=== PATIENT | female | born 1985 | race Caucasian/White ===

== ENCOUNTER → 2016-08-26 | Outpatient (CLI) | payer OTHER ==
[~2016-08-26] MED LIST: HYDROCODONE-APA1 TA1 PO; PRENATAL PLUS1 TA1 PO; SYNTHROID 0.00.05 MG PO
== END ==
LOC: LAB 09:54
PROVIDERS: Obstetrics & Gynecology
DX: Z36 Encounter for antenatal screening of mother (principal)

== ENCOUNTER 2017-03-28 18:13 | Emergency (ER) | payer OTHER ==
[~2017-03-28] VITALS: Ht 160 cm; Wt 72.6 kg
--- NOTE | 2017-03-28 18:34 | Urgent Treatment Center Report ---
History of Present Issue Date/Time Seen by Provider 03/28/171828 Visit Reason Pt arrived:Walked Presenting Problem:SORE THROAT FOR 3 DAYS Location if Accident: Onset of symptoms date/time:03/26/1702/03/1200 or onset unknown for: Have you (or family members/close friends) recently traveled outside the [place]? N If Yes, where/when: Have you had exposure to infectious disease within the past month? TB? Other? Specify: Patient state that she has had sore throat now for three days and she noticed white spots all over her tonsils and thought she seen a black spot on the top of her left tonsil and was worried. States that she has been taking over the counter Ibuprofen and it has been working some for the discomfort but when it wears off her throat is hurting again States that she has felt tired and wore out ALLERGIES Coded Allergies: amoxicillin (I-RASH 01/26/17) Home Medications Active Scripts HYDROCODONE 5MG/APAP 325MG (Hydrocodon-Acetaminophen 5-325) 1 TAB PO Q6HP PRN MODERATE TO SEVERE PAIN #20 TAB Prov: 01/29/17 Reported Medications MULTIVIT-MIN W/FE-FA ( Multivitamin Tablet) 1 TAB PO DAILY Levothyroxine Sodium (Synthroid 0.05MG) 0.05 MG PO DAILY History Medical History General Angina: No RI: No Hypertension? No Hyperlipidemia? No CHF? No COPD? No Asthma? No CVA? No Seizures? No Diabetes? No GB Disease: No MRSA? No TB? No Cancer? No Immunization HX DT/Tetanus 1-4 Years Ago Flu 2014-FSN Pneumonia Refuses Surgical Hx Previous Surgery?N Social History Smoking Hx Smoker: Former Smoker Tobacco: No Type Cigarettes Packs/day < 1 Pack Are you/the child exposed to second-hand smoke: No Alcohol Alcohol: No Review of Systems All Other Systems Reviewed and Negative ENT throat pain, throat swelling. Physical Exam Vital Signs Vital Signs Date Time Temp Pulse Resp B/P Pulse O2 O2 Flow FiO2 Ox Delivery Rate 03/28 1819 98.8 78 20 119/77 100 General Appearance normal appearance, WD/WN, no apparent distress Ear, Nose, Throat tonsillar exudate, tonsillar swelling, Tonsils red swollen with tonsil stones noted on both right and left tonsils Respiratory Status Yes: trachea midline, chest symmetrical, non tender chest. No: respiratory distress. 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 No Results/Orders Laboratory Tests 03/28/17 1850: Monoscreen NEGATIVE 03/28/17 182: Group A Strep Screen NOT DETECTED Orders Procedure Date/time Status MONO SCREEN 03/28 1827 Complete [facility] STREP SCREEN 03/28 1821 Complete Progress UT Progress Notes Comment Patient state that she is allergic to amoxicillin but that she has taken Cefdinir before without difficulty patient educated on the risk of cross sensitivitiy Departure Departure Time of Disposition 1908 Disposition DC Home or Self Care(routine) Clinical Impression Primary Impression: Upper respiratory infection Qualifiers: URI type: acute tonsillitis Pharyngitis/tonsillitis etiology: unspecified etiology Qualified Code: J03.90 - Acute tonsillitis, unspecified Condition STABLE Referrals Damon JARAMILLO,Edson (Family) Patient Instructions Sore Throat Additional Instructions Preventing tonsil stones If you have tonsil stones, they may occur on a regular basis. Fortunately, there are steps you can take to prevent them. These steps include: practicing good oral hygiene, including cleaning the bacteria off the back of your tongue when you brush your teeth stopping smoking gargling with salt water drinking plenty of water to stay hydrated Tonsil stone removal Most tonsilloliths are harmless, but many people want to remove them because they can smell bad or cause discomfort. Treatments range from home remedies to medical procedures Gargling Gargling vigorously with salt water can ease throat discomfort and may help dislodge tonsil stones. Salt water may also help to change your mouth chemistry. It can also help get rid of the odor tonsil stones can cause. Dissolve 1/2 teaspoon salt in 8 ounces of warm water, and gargle * Monitor Temp. Tylenol and/or Ibuprofen as needed. ER if fever is no less than 101 despite alternating Tylenol and Ibuprofen * Encourage fluids, water, Gatorade, powerade, pedialyte if infant/toddler/or child * Warm salt water gargles for throat irritation *Warm fluids *Sore throat lozenges *Sleep elevated Discharge Counseling Counseled pt/family regarding diagnosis, test results, medications/RX, home care, follow up needs Prescriptions Current Visit Scripts CEFDINIR (Cefdinir) 300 MG PO BID #20 CAP at 1911
[2017-03-28] MEDS ORDERED: OMNICEF 300 MG300 MG PO (19:12)
[2017-03-28 19:15] VITALS: BP 119/77
== END 2017-03-28 19:16 | disposition home or self-care (01) ==
LOC: UTC 18:13
DX: J03.90 Acute tonsillitis, unspecified (principal); Z87.891 Personal history of nicotine dependence; Z88.1 Allergy status to other antibiotic agents

== ENCOUNTER 2017-04-01 18:26 | Observation (INO) | payer OTHER ==
[~2017-04-01] VITALS: Ht 160 cm; Wt 75.4 kg
[~2017-04-01 18:26] MED LIST changes: +OMNICEF 300 MG300 MG PO
[2017-04-01 18:45] VITALS: BP 136/7
--- NOTE | 2017-04-01 19:00 | Emergency Room Report ---
History of Present Illness Time Seen by 1827 Presenting Problem in Triage Pt arrived:Walked Presenting Problem:PT PRESENTS WITH DIFFICULTY SWALLOWING. 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 N Clinical Suspician of Infection? N Mental Status: 1 - Regular (Normal Baseline) Sepsis Risk:Low Sepsis Risk Have you (or family members/close friends) recently traveled outside the [place]? N If Yes, where/when: Have you had exposure to infectious disease within the past month? TB? Other? Specify: Comment The patient complains of a 5 day history of sore throat. She has very large tonsils making it very difficult to swallow. She is finding it difficult at this point even take Jell-O and popsicles. She has been seen at the urgent treatment center on 03/28/17. Negative strep screen and Monospot. Started on cefdinir. She did not improve. She saw her primary care physician on Thursday 2 days ago and was given a steroid shot and started on clindamycin. She has continued to worsen. She had a CT scan of the neck today which showed severely enlarged tonsils without abscess. ALLERGIES Coded Allergies: amoxicillin (I-RASH 04/01/17) Home Medications Active Scripts CEFDINIR (Cefdinir) 300 MG PO BID #20 CAP Prov: 03/28/17 HYDROCODONE 5MG/APAP 325MG (Hydrocodon-Acetaminophen 5-325) 1 TAB PO Q6HP PRN MODERATE TO SEVERE PAIN #20 TAB Prov: 01/29/17 Reported Medications MULTIVIT-MIN W/FE-FA ( Multivitamin Tablet) 1 TAB PO DAILY Levothyroxine Sodium (Synthroid 0.05MG) 0.05 MG PO DAILY History Medical History General Angina: No MD: No Hypertension? No Hyperlipidemia? No CHF? No COPD? No Asthma? No CVA? No Seizures? No Diabetes? No GB Disease: No MRSA? No TB? No Cancer? No Immunization Hx Ped.Immunizations UTD Yes DT/Tetanus 1-4 Years Ago Flu 2015-16FSN Pneumonia Refuses Surgical Hx Previous Surgery?N BUSINESS INFO CONSULTANT Hx LMP N/A Social History Smoking Hx Smoker: Never Smoker Tobacco: No Type N/A Packs/day < 1 Pack Alcohol Alcohol: No Review of Systems All Other Systems Reviewed and Negative Constitutional fever ENT throat pain. Physical Exam Vital Signs Vital Signs Date Time Temp Pulse Resp B/P Pulse O2 O2 Flow FiO2 Ox Delivery Rate 04/01 1959 98.9 68 20 120/73 97 04/01 1958 98.9 83 20 136/70 97 04/01 1936 20 04/01 1845 98.9 83 18 136/7 97 General Appearance no apparent distress Eye Exam - bilateral eye normal exam, bilateral eye PERRL, bilateral eye EOMI Ear, Nose, Throat markedly enlarged tonsils, by about 1 cm, not kissing. No asymmetric swelling or uvular deviation to suggest abscess. No stridor or drooling. Erythema and exudates present on tonsils. Neck normal inspection, non-tender, supple, full range of motion Respiratory Status Yes: trachea midline, chest symmetrical. No: respiratory distress. Lung Sounds bilateral: normal breath sounds, lungs clear. Cardiovascular normal exam, regular rate/rhythm, no peripheral edema, no gallop, no JVD, no murmur, no rub, normal peripheral pulses Peripheral Pulses Pulses normal Yes Gastrointestinal normal bowel sounds, normal exam, non tender, soft, no organomegaly Extremities normal inspection Neurologic alert, normal exam, oriented x 3 Mental status normal mood/affect Skin intact, normal color, warm/dry Lymphatic no adenopathy Medical Decision Making LABS/Meds/Orders Pt receiving controlled substance in ED? Yes Pedro Pablo was queried for this patient? No Reason not queried - emergent pt cond=no time Results/Orders Laboratory Tests 04/01/17 1855: Sodium 140, Potassium 3.7, Chloride 106, Carbon Dioxide 26, BUN 8, Creatinine 0.8, Estimated Creat Clear 111, Estimated GFR (MDRD) 85, Glucose 78, Calcium 8.9 , Total Bilirubin 0.2, AST 14 L, ALT 19, Alkaline Phosphatase 120 H, Total Protein 7.1, Albumin 3.2 L, Globulin 3.9 H, Albumin/Globulin Ratio 0.8 L, WBC 8.3, RBC 4.20, Hgb 13.2, Hct 39.1, MCV 93.0, RDW 12.2, Plt Count 306, MPV 7.9, Gran % 65.4, Gran # 5.4, Lymphocytes % 25.3, Monocytes % 7.7, Eosinophils % 1.1, Basophils % 0.4, Lymphocytes # 2.1, Monocytes # 0.6, Eosinophils # 0.1, Basophils # 0.0, PUBS MCHC 33.7, MCH 31.3 H, Monoscreen NEGATIVE Current Medication Orders Sig/Viola Start time Last Medication Dose Route Stop Time Status Admin Ceftriaxone Sodium 1 GM ONCE ONE 04/01 2015 r Sodium Chloride 50 ML IV 04/01 2044 Sodium Chloride 1,000 ML .STK-MED ONE 04/01 1942 DC IV Methylprednisolone 0 .STK-MED ONE 04/01 1929 DC Sodium Succinate .ROUTE Morphine Sulfate 0 .STK-MED ONE 04/01 1929 DC .ROUTE Ondansetron HCl 0 .STK-MED ONE 04/01 1929 DC .ROUTE Methylprednisolone 125 MG ONCE ONE 04/01 1915 DC 04/01 Sodium Succinate IV 04/01 Morphine Sulfate 4 MG ONCE ONE 04/01 1915 DC 04/01 IV 04/01 Ondansetron HCl 4 MG ONCE ONE 04/01 1915 DC 04/01 IV 04/01 1916 193 Sodium Chloride 10 ML PRN PRN 04/01 1915 AC IV 04/02 1902 Sodium Chloride 1,000 ML .Q1H1M 04/01 1915 AC 04/01 IV 04/01 Sodium Chloride 10 ML PRN PRN 04/01 1915 AC IV 04/02 1903 Sodium Chloride 1,000 ML .Q1H1M 04/01 1915 AC IV 04/01 2015 Sodium Chloride 10 ML PRN PRN 04/01 1915 AC IV 04/02 1903 Orders Procedure Date/time Status MONO SCREEN 04/01 1912 Complete IV SALINE LOCK 04/01 1904 Active CBC WITH AUTO DIFF 04/01 1904 Complete CHEM 12 PROFILE 04/01 1904 Complete Progress - 7:50 PM: I have discussed the case with Dr. Jose who agrees to admit the patient to the hospital. We discussed the patient's clinical information, including history, exam, laboratory and radiology results and ED course. Per hospital procedure, I will write temporary bridge inpatient orders on the patient. Specific orders requested by the admitting physician: IV fluids, Decadron, 1 dose of Rocephin, continue clindamycin. Departure Departure Disposition Still a Patient Clinical Impression Primary Impression: Acute tonsillitis Qualifiers: Pharyngitis/tonsillitis etiology: unspecified etiology Qualified Code: J03.90 - Acute tonsillitis, unspecified Condition STABLE Referrals Edson Jose MD (Family) ED Critical Care Critical Care No at 2002
[2017-04-01 19:09] LABS: HEMOGLOBIN 13.2 g/dL (12.2-16.2); LYMPH # 2.1 K/mm3 (0.7-4.5); LYMPH % 25.3 % (10-50.0)
[2017-04-01 20:58] VITALS: BP 120/73
[2017-04-01] MEDS ORDERED: SPRINTEC 35 MCG1 TAB PO (21:13)
[2017-04-01 22:36] VITALS: BP 119/65
[2017-04-02 03:49] VITALS: BP 127/58
--- NOTE | 2017-04-02 07:24 | PHARMACY CLINIC NOTE ---
Patient Demographics Patient Demographics Admission date: 04/01/17 Date: 04/02/17 Time: 0723 Allergies Coded Allergies: amoxicillin (I-RASH 04/01/17) HEIGHT- FT: 5 IN: 3.00 K.354 VTE General Information Labs: Laboratory Tests 04/01 1855 Hematology Hgb (12.2 - 16.2 g/dL) 13.2 Hct (37.0 - 47.0 %) 39.1 Plt Count (142 - 424 K/mm3) 306 Disclaimer The following section includes nursing documentation that has been pulled in for pharmacy review. Patient's VTE score: 0 Patient's VTE Risk: VERY LOW RISK Clinical trial participant? No VTE prophylaxis NQF [id number] VTE prophylaxis ordered? Yes Type of prophylaxis/treatment: SARTHAK at 0723
[2017-04-02 08:08] VITALS: BP 111/67
--- NOTE | 2017-04-02 08:32 | HISTORY AND PHYSICAL REPORT ---
Demographics: Admit date: 04/02/17 Chief complaint: sore throat PRIMARY DIAGNOSIS: TONSILITIS Allergies: Coded Allergies: amoxicillin (I-RASH 04/01/17) History of present illness: History of present illness: 31 year old white female presented to the ED last evening with sore throat and difficulty swallowing. Patient was originally seen at the [facility] on 03/28 for sore throat and started on cefdinir. Rapid strep and [place] spot were negative at that time. She was seen in our office on Thursday and given a Kenalog injection and started on Clindamycin. A throat culture was sent at that time which is still pending. Patient reports symptoms continued to worsen and she began having difficulty swallowing last night. In the ED, a CT Scan of her neck with performed which showed severely enlarged tonsils without abscess. Patient was admitted to acute care for IV antibiotics, steroids and ENT consultation. Past medical history: Family HX Diabetes Yes CAD Yes Hypertension Yes Hyperlipidemia Yes Cancer No TB No Immunization HX Ped.Immunizations UTD Yes DT/Tetanus 5-10 Years Ago Flu 2014-FSN Pneumonia Never Had TB Test in last year Yes Result Negative General Angina: No [place]: No Hypertension? No Hyperlipidemia? No CHF? No COPD? No Asthma? No Hernia? No CVA? No Seizures? No Diabetes? No UTI? No Stones? No GB Disease: No Nephritic Syndrome? No Asplenia? No Hepatitis? No Sickle Cell Disease? No MRSA? No HIV? No TB? No Cancer? No More? No Past Surgical HX Previous Surgery?Y CSX X2 Current home meds: Active Scripts CEFDINIR (Cefdinir) 300 MG PO BID #20 CAP Prov: 03/28/17 HYDROCODONE 5MG/APAP 325MG (Hydrocodon-Acetaminophen 5-325) 1 TAB PO Q6HP PRN MODERATE TO SEVERE PAIN #20 TAB Prov: 01/29/17 Reported Medications NORGESTIMATE-ETHINYL ESTRADIOL (Sprintec 28 Day Tablet) 1 TAB PO DAILY Levothyroxine Sodium (Synthroid 0.05MG) 0.05 MG PO DAILY Social Hx: Smoking HX Tobacco No Type N/A Packs/day < 1 PACK Are you/the child exposed to second-hand smoke: No Alcohol Alcohol: No Hx of Drug Use Drug Use? No Patien't marital status is Patient's support system is excellent Review of systems: Constitutional No: no symptoms reported. Eyes No: no symptoms reported. Ears, Nose, Mouth, Throat see HPI Respiratory No: no symptoms reported. Cardiovascular No no symptoms reported Gastrointestinal/Abdominal No no symptoms reported Genitourinary No: no symptoms reported. Musculoskeletal No: no symptoms reported. Skin No: no symptoms reported. Neurological No: no symptoms reported. Psychiatric No: no symptoms reported. Exam: Lab data for last 24 hours: Laboratory Tests 04/01/17 1855: Sodium 140, Potassium 3.7, Chloride 106, Carbon Dioxide 26, BUN 8, Creatinine 0.8, Estimated Creat Clear 111, Estimated GFR (MDRD) 85, Glucose 78, Calcium 8.9 , Total Bilirubin 0.2, AST 14 L, ALT 19, Alkaline Phosphatase 120 H, Total Protein 7.1, Albumin 3.2 L, Globulin 3.9 H, Albumin/Globulin Ratio 0.8 L, WBC 8.3, RBC 4.20, Hgb 13.2, Hct 39.1, MCV 93.0, RDW 12.2, Plt Count 306, MPV 7.9, Gran % 65.4, Gran # 5.4, Lymphocytes % 25.3, Monocytes % 7.7, Eosinophils % 1.1, Basophils % 0.4, Lymphocytes # 2.1, Monocytes # 0.6, Eosinophils # 0.1, Basophils # 0.0, PUBS MCHC 33.7, MCH 31.3 H, Monoscreen NEGATIVE Admission vital signs: 1ST Vital Signs Result Date Time Pulse Ox 97 04/01 1845 B/P 136/7 04/01 1845 Temp 98.9 04/01 1845 Pulse 83 04/01 184 Resp 18 04/01 1845 O2 Delivery ROOM AIR 04/01 2058 Exam General appearance: normal appearance, awake, no acute distress Eyes: anicteric ENT: tonsils 3-4+ bilaterally, not kissing, white exudates, EAC without erythema bilaterally, TM with small serous effusions, no erythema, nose clear Neck: tender anterior tonsillar LAD Cardiovascular: regular rate & rhythm, no murmur, normal peripheral pulses Respiratory: clear to auscultation, chest non-tender, good air movement ABD: diffuse mild tenderness, normoactive bowel sounds Genitourinary: normal voiding & quantity, no dysuria, no hematuria Extremities: moves all, no peripheral edema Musculoskeletal: normal exam Skin: dry, intact, normal color Neuro: alert, no deficit, normal mood/affect, oriented Plan: Problem List 1. Acute tonsillitis Assessment/Plan Continue clindamycin, rocephin and steroids. Start probiotics. Will obtain EBV /CMV titers to determine if this could be the cause of her symptoms. Throat culture pending. Consult ENT. Plan: See above at 0832
[2017-04-02 08:38] VITALS: BP 111/67
[2017-04-02 16:15] VITALS: BP 137/74
--- NOTE | 2017-04-02 16:22 | CONSULT NOTE ---
Consult Note Note: This patient was seen because of a severe sore throat and a possible abscess. Problem started one week earlier and she had been to the ER as well as to the urgent treatment Center She was on clindamycin 300 mg 4 times a day. All of her labs including her white count were normal. A throat swab was pending at the time of my examination. A CT of the neck did not show any abscesses but did confirmed the clinical finding of very enlarged tonsils. Examination revealed obstructive tonsillitis with inflammation and stones in both tonsils,There was no evidence of any abscesses. There was no cervical lymphadenopathy and the remainder of the examination was normal. When I examined her she was starting to feel better subsequent to a dose of Solu-Medrol. What I did prescribe is a further dose of Solu-Medrol, a mono titer test. I think that she'll be fit to be discharged tomorrow. She most likely has a viral tonsillitis,and given the very enlarged tonsils that she has it would be prudent to proceed with a tonsillectomy when her condition stabilizes. Dr. Mahesh Leo please send a copy to Dr. Toby Jose.
[2017-04-02 19:30] VITALS: BP 140/72
[2017-04-02 20:03] VITALS: BP 140/72
[2017-04-03 04:26] VITALS: BP 113/57
[2017-04-03] MEDS ORDERED: FLONASE 50 MCG16 GM (07:39)
--- NOTE | 2017-04-03 07:39 | ACUTE CARE PROGRESS NOTE (QUA) ---
Progress Notes Subjective Date 04/03/17 Time 0737 Note Has tolerated a soft diet well. No fevers noted. Tonsils are still very large, but exudate has improved as has redness. No stridor, lung anderson are clear. Pulse rate regular. Objective Findings Last VS-Temp:97.5 B/P:113/57 Pulse:49 Resp:16 SaO2:95 ROOM AIR Last weight lbs:166 oz:2 K.354 Method:Bed Scales Assessment/Plan Problem List 1. Acute tonsillitis Qualifiers: Pharyngitis/tonsillitis etiology: unspecified etiology Qualified Code: J03.90 - Acute tonsillitis, unspecified Patient condition Improving Plan: continue current care, initiate discharge plan This inpt stay is expected to cross 2 MNs from start of care No at 0738
[2017-04-03] MEDS ORDERED: DEXAMETHASONE 4M4 MG PO (07:40)
--- NOTE | 2017-04-03 07:43 | DISCHARGE SUMMARY STANDARD ---
Demographics Admit date: 04/02/17 Discharge date: 04/03/17 History of present illness History of present illness 31 year old white female presented to the ED last evening with sore throat and difficulty swallowing. Patient was originally seen at the [facility] on 03/28 for sore throat and started on cefdinir. Rapid strep and [place] spot were negative at that time. She was seen in our office on Thursday and given a Kenalog injection and started on Clindamycin. A throat culture was sent at that time which is still pending. Patient reports symptoms continued to worsen and she began having difficulty swallowing last night. In the ED, a CT Scan of her neck with performed which showed severely enlarged tonsils without abscess. Patient was admitted to acute care for IV antibiotics, steroids and ENT consultation. Hospital Course Hospital Course: Patient was admitted as noted, intravenous steroid and antibiotic therapy was instituted with hydration. ENT was consulted, note reviewed and discussed with Dr. Leo, input appreciated. This morning patient has improved very nicely. Tonsils are still very large but much less reddened and oral intake has improved. Please see my discharge exam. Patient will be discharged home with dexamethasone, antibiotics and Flonase as noted in her medication reconciliation document. Follow up with me in 5 days. ENT follow-up as an outpatient for planned tonsillectomy. Discharge diagnoses Problem List 1. Acute tonsillitis Medications Medications: Discharge meds are as noted. Follow up Follow up in office in: 5 DAYS with: Edson Jose MD at 0742
[2017-04-03 08:30] VITALS: BP 130/71
[2017-04-03 08:44] LABS: Cytomegalovirus (CMV) Ab, IgM <30.0 AU/mL (0.0-29.9)
[2017-04-03 10:15] VITALS: BP 130/71
--- NOTE | 2017-04-03 12:52 | CONSULT NOTE ---
Consult Note Note: This patient was doing better when examined on April 03, 2017. Her tonsils were no longer inflamed. And the she was comfortable and eating well. There was no cervical lymphadenopathy. Her previously sent throat cultures were still not resulted. Her blood work was normal. The Monospot titer was negative. She was fit for discharge and Dr. Jose had already scheduled that discharge. She will follow-up in one month's time regarding her severely enlarged diseased tonsils. Final diagnosis; 1. Probable viral acute viral tonsillitis 2. Severe acute throat pain 3. Chronic obstructive tonsillitis at 1257
[2017-04-03 14:40] LABS: EBV Ab VCA, IgM <36.0 U/mL (0.0-35.9); EBV Nuclear Antigen Ab, IgG 44.5 U/mL (0.0-17.9)
[2017-04-08 16:40] LABS: Epstein-Barr DNA Quant, PCR Negative (Negative)
--- OUTSIDE RECORDS SUMMARY | 2017-04-28 03:25 | External Medical Summary Rpt ---
Demographics Preferred Language Croatian Marital Status Unknown Yazdanism Affiliation Unknown Race Unknown Ethnic Group Unknown Author Author BRITTANI Address Unknown Phone Immunization No patient found.
--- OUTSIDE RECORDS SUMMARY | 2017-04-28 03:25 | External Medical Summary Rpt ---
Author Author , BRIANA WARREN Address Unknown Phone [email or web address] Purpose Continuity of Care Document - 12-02-2016 through 2016 Problems Code Diagnosis DOS Provider Status J03.90 ACUTE TONSILLITIS , UNSPECIFIED Results Labs Lab Lab Date Result Refere Interp Status Commen Order Detail nces retati t Range on Heterophile Ab [Presence] in Serum by Latex agglutination (04-02-2017 14:09) Heterop NEGATIV NEG complet hile Ab 017 E ed 14:09 [Presen ce] in Serum by Latex aggluti nation Heterophile Ab [Presence] in Serum by Latex agglutination (04-01-2017 18:55) Heterop NEGATIV NEG complet hile Ab 017 E ed 18:55 [Presen ce] in Serum by Latex aggluti nation Heterophile Ab [Presence] in Serum by Latex agglutination (03-28-2017 18:50) Heterop NEGATIV NEG complet hile Ab 017 E ed 18:50 [Presen ce] in Serum by Latex aggluti nation Streptococcus pyogenes Ag [Presence] in Unspecified specimen (03-28-2017 18:21) Strepto NOT NOTDETE complet coccus [address] pyogene 18:21 D s Ag [Presen ce] in Unspeci fied specime n Urinalysis dipstick W Reflex Microscopic panel in Urine (01-26-2017 07:40) Bacteri 1+ O complet a 017 ed [Presen 07:40 ce] in Urine sedimen t by Light microsc opy Mucus 1+ OCC complet [Presen 017 ed ce] in 07:40 Urine sedimen t by Light microsc opy Erythro 5-10 0 complet cytes 017 ed [Presen 07:40 ce] in Urine sedimen t by Light microsc opy Epithel 5-10 0#/hp complet ial 017 f - ed cells.s 07:40 5#/hp quamous f [Presen ce] in Urine sedimen t by Microsc opy high power field Leukocy 3-5 O complet will 017 wbc/hpf ed [#/volu 07:40 me] in Urine Urinalysis dipstick W Reflex Microscopic panel in Urine (01-26-2017 07:40) Appeara CLEAR CLEAR complet nce of 017 ed Urine 07:40 Bilirub NEGATIV NEG complet in 017 E ed [Presen 07:40 ce] in Urine by Test strip Erythro 1+ NEG Abnorma complet cytes 017 l ed [Presen 07:40 ce] in Urine Color YELLOW YELLOW complet of 017 ed Urine 07:40 Ketones NEGATIV NEG complet 017 E ed [Presen 07:40 ce] in Urine by Automat ed test strip Mucus NEGATIV NEG complet [Presen 017 E ed ce] in 07:40 Urine sedimen t by Light microsc opy Nitrite NEGATIV NEG complet 017 E ed [Presen 07:40 ce] in Urine by Test strip Urobili 0.2 NEG complet nogen 017 ed [Presen 07:40 ce] in Urine by Test strip Blood type & Indirect antibody screen panel in Blood (01-26-2017 05:40) Blood NEGATIV NEGATIV complet group 017 E E ed antibod 05:40 y screen [Presen ce] in Serum or Plasma Rh POSITIV complet [Type] 017 E ed in 05:40 Blood ABO A complet group 017 ed [Type] 05:40 in Blood
--- OUTSIDE RECORDS SUMMARY | 2017-04-28 03:25 | External Medical Summary Rpt ---
Author Author BRIANA Meek, [employer] Organization [employer] Address Unknown Phone Unavailable Results Heterophile Ab [Presence] in Serum by Latex agglutination Observa Value Referen Units Interpr Notes Date tion ce etation Range COMMENTS TO DURABLE MEDICAL EQUIPMENT TECHNICIAN: [employer] Heterop NEGATIV NEG No No No Sep 14 hile Ab E informa informa informa 2017 tion in tion in tion in 2:09 PM [Presen source source source ce] in data data data Serum by Latex aggluti nation Tristen-Richardson DNA Quant, PCR Observa Value Referen Units Interpr Notes Date tion ce etation Range Tristen Negative No No INFCE Sep 14 Richardson informati informati Result 2017 8:02 virus DNA on in on in Units: AM source source copies/mL [#/volume data data No EBV ] (viral DNA load) in detected. Serum or The Plasma by quantitat Probe & yu range target of this amplifica assay is tion 100 to 1 method millionco pies/mL.T his test was developed and its performan ce character isticsdet ermined by [facility]. It has not been cleared or approvedb y the Food and Drug Administr ation. Ramon . No No INFCE Sep 14 Richardson informati informati Result 2017 8:02 virus DNA on in on in Units: AM [Log source source log10 #/volume] data data copy/mLUn (viral able to load) in calculate Unspecifi result ed since specimen non-numer by Probe ic & target resultobt amplifica ained for tion method component test.[facility] [id number] [place], [place] [id number] [employer]ray Service Worker: Canelo Chan MD, Phone: [phone] Comprehensive metabolic 2000 panel in Serum or Plasma Observa Value Referen Units Interpr Notes Date tion ce etation Range Albumin/G 1.1 - 1.8 No Low No Sep 13 lobulin informati informati 2017 6:55 [Mass on in on in PM ratio] in source source Serum or data data Plasma Albumin 3.4 - 5.0 gm/dL Low No Sep 13 [Mass/vol informati 2017 6:55 ume] in on in PM Serum or source Plasma data Alkaline 46 - 116 U/L High No Sep 13 phosphata informati 2017 6:55 se on in PM [Enzymati source c data activity/ volume] in Serum or Plasma Bilirubin 0.2 - 1.0 mg/dL Normal No Sep 13 .total informati 2017 6:55 [Mass/vol on in PM ume] in source Serum or data Plasma Urea 7 - 18 mg/dL Normal No Sep 13 nitrogen informati 2017 6:55 [Mass/vol on in PM ume] in source Serum or data Plasma Calcium 8.5 - mg/dL Normal No Sep 13 [Mass/vol 10.1 informati 2017 6:55 ume] in on in PM Serum or source Plasma data Chloride 98 - 107 mmoL/L Normal No Sep 13 [Moles/vo informati 2017 6:55 lume] in on in PM Serum or source Plasma data Carbon 21.0 - mmoL/L Normal No Sep 13 dioxide, 32.0 informati 2017 6:55 total on in PM [Moles/vo source lume] in data Serum or Plasma Creatinin 0.55 - mg/dL Normal No Sep 13 e 1.02 informati 2017 6:55 [Mass/vol on in PM ume] in source Serum or data Plasma Creatinin 50 - 200 ML/MIN Normal No Sep 13 e renal informati 2017 6:55 clearance on in PM source predicted data by Cockcroft -Gault formula Estimated 59- ML/MIN No REFERENCE Sep 13 informati RANGE: 2017 6:55 glomerula on in >60 PM r source ML/MIN/1. filtratio data 73 SQUARE n rate METERSIf (GF this patient is -A merican, then multiply theresult by 1.210. Globulin 1.3 - 3.2 gm/dL High No Sep 13 [Mass/vol informati 2017 6:55 ume] in on in PM Serum source data Glucose 74 - 106 mg/dL Normal No Sep 13 [Mass/vol informati 2016 6:55 ume] in on in PM Serum or source Plasma data Potassium 3.5 - 5.1 mmoL/L Normal No Sep 13 informati 2017 6:55 [Moles/vo on in PM lume] in source Serum or data Plasma Sodium 136 - 145 mmoL/L Normal No Mar 13 [Moles/vo inform2016 6:55 lume] in on in PM Serum or source Plasma data Aspartate 15 - 37 U/L Low No Sep 13 inform2016 6:55 aminotran on in PM sferase source [Enzymati data c activity/ volume] in Serum or Plasma Alanine 12 - 78 U/L Normal No Apr 01 aminotran informati 2016 6:55 sferase on in PM [Enzymati source c data activity/ volume] in Serum or Plasma Protein 6.4 - 8.2 gm/dL Normal No Mar 13 [Mass/vol informati 2016 6:55 ume] in on in PM Serum or source Plasma data Heterophile Ab [Presence] in Serum by Latex agglutination Observa Value Referen Units Interpr Notes Date tion ce etation Range Heterop NEGATIV NEG No No Mar 13 hile Ab E informa informa 2016 tion in tion in 6:55 PM [Presen source source ce] in data data Serum by Latex aggluti nation CBC W Auto Differential panel in Blood Observa Value Referen Units Interpr Notes Date tion ce etation Range Basophils 0 - 0.2 K/MM3 Normal No Sep 13 inform2016 6:55 [#/volume on in PM ] in source Blood by data Automated count Basophils 0.1 - 2.0 % Normal No Sep 13 /100 informati 2016 6:55 leukocyte on in PM s in source Blood by data Automated count Eosinophi 0.0 - 0.4 K/mm3 Normal No Sep 13 ls informati 2016 6:55 [#/volume on in PM ] in source Blood by data Automated count Eosinophi 0.1 - % Normal No Sep 13 ls/100 12.0 informati 2016 6:55 leukocyte on in PM s in source Blood by data Automated count Granulocy 1.8 - 7.8 K/mm3 Normal No Sep 13 will informati 2016 6:55 [#/volume on in PM ] in source Blood by data Automated count Granulocy 37.0 - % Normal No Sep 13 will/100 80.0 informati 2016 6:55 leukocyte on in PM s in source Blood by data Automated count Hematocri 37.0 - % Normal No Sep 13 t [Volume 47.0 informati 2017 6:55 on in PM Fraction] source of Blood data Hemoglobi 12.2 - g/dL Normal No Sep 13 n 16.2 informati 2017 6:55 [Mass/vol on in PM ume] in source Blood data Lymphocyt 0.7 - 4.5 K/mm3 Normal No Sep 13 es informati 2017 6:55 [#/volume on in PM ] in source Unspecifi data ed specimen by Automated count Lymphocyt 10 - 50.0 % Normal No Sep 13 es informati 2017 6:55 [#/volume on in PM ] in source Unspecifi data ed specimen by Automated count Erythrocy 27 - 31.2 pg High No Sep 13 te mean informati 2017 6:55 corpuscul on in PM ar source hemoglobi data n [Entitic mass] Erythrocy 31.8 - g/dl Normal No Sep 13 te mean 35.4 informati 2017 6:55 corpuscul on in PM ar source hemoglobi data n concentra tion [Mass/vol ume] by Automated count Erythrocy 82.2 - fl Normal No Sep 13 te mean 97.8 informati 2017 6:55 corpuscul on in PM ar volume source [Entitic data volume] by Automated count Monocytes 0.1 - 1.0 K/mm3 Normal No Sep 13 informati 2017 6:55 [#/volume on in PM ] in source Blood by data Automated count Monocytes 1.7 - 9.3 % Normal No Sep 13 /100 informati 2017 6:55 leukocyte on in PM s in source Blood by data Automated count Platelet 7.4 - fl Normal No Sep 13 mean 10.4 informati 2017 6:55 volume on in PM [Entitic source volume] data in Blood by Automated count Platelets 142 - 424 K/mm3 No No Sep 13 informati informati 2017 6:55 [#/volume on in on in PM ] in source source Blood data data Erythrocy 4.2 - 5.4 M/mm3 Normal No Sep 13 will informati 2017 6:55 [#/volume on in PM ] in source Amniotic data fluid Erythrocy 11.5 - % Normal No Sep 13 te 17.5 informati 2017 6:55 distribut on in PM ion width source [Entitic data volume] by Automated count Leukocyte 4.8 - K/MM3 Normal No Sep 13 s 10.8 informati 2017 6:55 [#/volume on in PM ] in source Blood data Heterophile Ab [Presence] in Serum by Latex agglutination Observa Value Referen Units Interpr Notes Date ti ce etation Range Heterop NEGATIV NEG No No No Sep 9 hile Ab E informa informa informa 2017 tion in tion in tion in 6:50 PM [Presen source source source ce] in data data data Serum by Latex aggluti nation Streptococcus pyogenes Ag [Presence] in Unspecified specimen Observa Value Referen Units Interpr Notes Date ti ce etation Range Strepto NOT NOTDETE No No LOT # Sep 9 coccus DETECTE CTED informa informa N/A EXP 2017 pyogene D tion in tion in DATE 6:21 PM s Ag source source N/APERF [Presen data data ORMED ce] in IN Unspeci [facility]ied [facility] specime n Hemoglobin & Hematocrit panel in Blood Observa Value Referen Units Interpr Notes Date ti ce etation Range COMMENTS TO DURABLE MEDICAL EQUIPMENT TECHNICIAN: ADMINISTER RHOGAM INDICATED Hematocri 37.0 - % Low No Jan 27 t [Volume 47.0 informati 2017 6:23 on in AM Fraction] source of Blood data Hemoglobi 12.2 - g/dL Low No Jan 27 n 16.2 informati 2017 6:23 [Mass/vol on in AM ume] in source Blood data pH of Cord blood Observa Value Referen Units Interpr Notes Date ti ce etation Range pH of 7.35 - No Low No Jan 26 Cord 7.45 informati informati 2017 7:50 blood on in on in AM source source data data Urinalysis dipstick W Reflex Microscopic panel in Urine Observa Value Referen Units Interpr Notes Date ti ce etation Range Collected by nurse? Y Hold specimen in OE? N Appeara CLEAR CLEAR No No No Jan 26 nce of informa informa informa 2016 Urine tion in tion in tion in 7:40 AM source source source data data data Bacteri 1+ O No No No Jan 26 a informa informa informa 2016 [Presen tion in tion in tion in 7:40 AM ce] in source source source Urine data data data sedimen t by Light microsc opy Bilirub NEGATIV NEG No No No Jan 26 in E informa informa informa 2016 [Presen tion in tion in tion in 7:40 AM ce] in source source source Urine data data data by Test strip Erythro 1+ NEG No Abnorma No Jan 26 cytes informa l informa 2016 [Presen tion in tion in 7:40 AM ce] in source source Urine data data Color YELLOW YELLOW No No No Jan 26 of informa informa informa 2017 Urine tion in tion in tion in 7:40 AM source source source data data data Glucose NEG No No No Jan 26 [Mass/vol informati informati informati 2016 7:40 ume] in on in on in on in AM Urine by source source source Test data data data strip Ketones NEGATIV NEG mg/dL No No Jan 26 E informa informa 2016 [Presen tion in tion in 7:40 AM ce] in source source Urine data data by Automat ed test strip Mucus NEGATIV NEG No No No Jan 26 [Presen E informa informa informa 2016 ce] in tion in tion in tion in 7:40 AM Urine source source source sedimen data data data t by Light microsc opy Mucus 1+ OCC No No No Jan 26 [Presen informa informa informa 2016 ce] in tion in tion in tion in 7:40 AM Urine source source source sedimen data data data t by Light microsc opy Nitrite NEGATIV NEG No No No Jan 26 E informa informa informa 2016 [Presen tion in tion in tion in 7:40 AM ce] in source source source Urine data data data by Test strip pH of 5.0 - 8.5 No Normal No Jan 26 Urine informati informati 2017 7:40 on in on in AM source source data data Protein NEG mg/dL No No Jan 26 [Mass/vol informati informati 2016 7:40 ume] in on in on in AM Urine by source source Automated data data test strip Erythro 5-10 0 rbc/hpf No No Jan 26 cytes informa informa 2016 [Presen tion in tion in 7:40 AM ce] in source source Urine data data sedimen t by Light microsc opy Specific 1.005 - No Normal No Jan 26 gravity 1.030 informati informati 2017 7:40 of Urine on in on in AM source source data data Epithel 5-10 0 - 5 #/hpf No No Jan 26 ial informa informa 2017 cells.s tion in tion in 7:40 AM quamous source source data data [Presen ce] in Urine sedimen t by Microsc opy high power field Urobili 0.2 NEG E.U./dL No No Jan 26 nogen informa informa 2016 [Presen tion in tion in 7:40 AM ce] in source source Urine data data by Test strip Leukocy [3 O wbc/hpf No No Jan 26 will wbc/hpf informa informa 2016 [#/volu ; 5 tion in tion in 7:40 AM me] in wbc/hpf source source Urine ] data data Urinalysis dipstick W Reflex Microscopic panel in Urine Observa Value Referen Units Interpr Notes Date tion ce etation Range Collected by nurse? Y Hold specimen in OE? N Appeara CLEAR CLEAR No No No Jan 26 nce of informa informa informa 2017 Urine tion in tion in tion in 7:40 AM source source source data data data Bilirub NEGATIV NEG No No No Jan 26 in E informa informa informa 2016 [Presen tion in tion in tion in 7:40 AM ce] in source source source Urine data data data by Test strip Erythro 1+ NEG No Abnorma No Jan 26 cytes informa l informa 2016 [Presen tion in tion in 7:40 AM ce] in source source Urine data data Color YELLOW YELLOW No No No Jan 26 of informa informa informa 2017 Urine tion in tion in tion in 7:40 AM source source source data data data Glucose NEG No No No Jan 26 [Mass/vol informati informati informati 2017 7:40 ume] in on in on in on in AM Urine by source source source Test data data data strip Ketones NEGATIV NEG mg/dL No No Jan 26 E informa informa 2016 [Presen tion in tion in 7:40 AM ce] in source source Urine data data by Automat ed test strip Mucus NEGATIV NEG No No No Jan 26 [Presen E informa informa informa 2017 ce] in tion in tion in tion in 7:40 AM Urine source source source sedimen data data data t by Light microsc opy Nitrite NEGATIV NEG No No No Jan 26 E informa informa informa 2016 [Presen tion in tion in tion in 7:40 AM ce] in source source source Urine data data data by Test strip pH of 5.0 - 8.5 No Normal No Jan 26 Urine informati informati 2016 7:40 on in on in AM source source data data Protein NEG mg/dL No No Jan 26 [Mass/vol informati informati 2016 7:40 ume] in on in on in AM Urine by source source Automated data data test strip Specific 1.005 - No Normal No Jan 26 gravity 1.030 informati informati 2016 7:40 of Urine on in on in AM source source data data Urobili 0.2 NEG E.U./dL No No Jan 26 nogen informa informa 2016 [Presen tion in tion in 7:40 AM ce] in source source Urine data data by Test strip Blood type & Indirect antibody screen panel in Blood Observa Value Referen Units Interpr Notes Date ti ce etation Range Blood NEGATIV NEGATIV No No No Jan 26 group E E informa informa informa 2016 antibod tion in ti in ti in 5:40 AM y source source source screen data data data [Presen ce] in Serum or Plasma Rh POSITIV No No No No Jan 26 [Type] E informa informa informa informa 2016 in tion in tion in tion in tion in 5:40 AM Blood source source source source data data data data ABO A No No No No Jan 26 group informa informa informa informa 2016 [Type] tion in tion in tion in tion in 5:40 AM in source source source source Blood data data data data CBC W Auto Differential panel in Blood Observa Value Referen Units Interpr Notes Date tion ce etation Range Basophils 0 - 0.2 K/MM3 Normal No Jan 26 informati 2016 5:40 [#/volume on in AM ] in source Blood by data Automated count Basophils 0.1 - 2.0 % Normal No Jan 26 /100 informati 2016 5:40 leukocyte on in AM s in source Blood by data Automated count Eosinophi 0.0 - 0.4 K/mm3 Normal No Jan 26 ls informati 2016 5:40 [#/volume on in AM ] in source Blood by data Automated count Eosinophi 0.1 - % Normal No Jan 26 ls/100 12.0 informati 2016 5:40 leukocyte on in AM s in source Blood by data Automated count Granulocy 1.8 - 7.8 K/mm3 Normal No Jan 26 will informati 2016 5:40 [#/volume on in AM ] in source Blood by data Automated count Granulocy 37.0 - % Normal No Jan 26 will/100 80.0 informati 2016 5:40 leukocyte on in AM s in source Blood by data Automated count Hematocri 37.0 - % Normal No Jan 26 t [Volume 47.0 informati 2016 5:40 on in AM Fraction] source of Blood data Hemoglobi 12.2 - g/dL Normal No Jan 26 n 16.2 informati 2016 5:40 [Mass/vol on in AM ume] in source Blood data Lymphocyt 0.7 - 4.5 K/mm3 Normal No Jan 26 es informati 2016 5:40 [#/volume on in AM ] in source Unspecifi data ed specimen by Automated count Lymphocyt 10 - 50.0 % Normal No Jan 26 es informati 2016 5:40 [#/volume on in AM ] in source Unspecifi data ed specimen by Automated count Erythrocy 27 - 31.2 pg High No Jan 26 te mean informati 2016 5:40 corpuscul on in AM ar source hemoglobi data n [Entitic mass] Erythrocy 31.8 - g/dl Normal No Jan 26 te mean 35.4 informati 2016 5:40 corpuscul on in AM ar source hemoglobi data n concentra tion [Mass/vol ume] by Automated count Erythrocy 82.2 - fl Normal No Jan 26 te mean 97.8 informati 2016 5:40 corpuscul on in AM ar volume source [Entitic data volume] by Automated count Monocytes 0.1 - 1.0 K/mm3 Normal No Jan 26 informati 2016 5:40 [#/volume on in AM ] in source Blood by data Automated count Monocytes 1.7 - 9.3 % Normal No Jan 26 informati 2016 5:40 leukocyte on in AM s in source Blood by data Automated count Platelet 7.4 - fl Normal No Jan 26 mean 10.4 informati 2016 5:40 volume on in AM [Entitic source volume] data in Blood by Automated count Platelets 142 - 424 K/mm3 Normal No Jan 26 informati 2016 5:40 [#/volume on in AM ] in source Blood data Erythrocy 4.2 - 5.4 M/mm3 Low No Jan 26 will informati 2016 5:40 [#/volume on in AM ] in source Amniotic data fluid Erythrocy 11.5 - % Normal No Jan 26 te 17.5 informati 2016 5:40 distribut on in AM ion width source [Entitic data volume] by Automated count Leukocyte 4.8 - K/MM3 Normal No Jan 26 s 10.8 informati 2016 5:40 [#/volume on in AM ] in source Blood data Fibrin D-dimer FEU [Mass/volume] in Platelet poor plasma Observa Value Referen Units Interpr Notes Date tion ce etation Range Fibrin 0 - 400 ng/mL Normal The December 07 D-dimer D-Dimer 2016 FEU values 10:45 AM [Mass/vol are ume] in presented Platelet in units poor of plasma mass(ng/m L) ofD-Dimer units(DDU ).This test has been FDA approved as an aid in the assessmen tand evaluatio n of suspected DIC, and thromboem bolic eventsinc luding PE and DVT. However, it does not have approvalf or cut-off values for the exclusion of these condition s. Comprehensive metabolic 2000 panel in Serum or Plasma Observa Value Referen Units Interpr Notes Date tion ce etation Range Albumin/G 1.1 - 1.8 No Low No December 02 lobulin informati informati 2016 7:44 [Mass on in on in AM ratio] in source source Serum or data data Plasma Albumin 3.4 - 5.0 gm/dL Low No December 02 [Mass/vol informati 2016 7:44 ume] in on in AM Serum or source Plasma data Alkaline 46 - 116 U/L Normal No December 02 phosphata informati 2016 7:44 se on in AM [Enzymati source c data activity/ volume] in Serum or Plasma Bilirubin 0.2 - 1.0 mg/dL Normal No December 02 .total informati 2016 7:44 [Mass/vol on in AM ume] in source Serum or data Plasma Urea 7 - 18 mg/dL Normal No December 02 nitrogen informati 2016 7:44 [Mass/vol on in AM ume] in source Serum or data Plasma Calcium 8.5 - mg/dL Low No December 02 [Mass/vol 10.1 informati 2016 7:44 ume] in on in AM Serum or source Plasma data Chloride 98 - 107 mmoL/L Normal No December 02 [Moles/vo informati 2016 7:44 lume] in on in AM Serum or source Plasma data Carbon 21.0 - mmoL/L Normal December 02 dioxide, 32.0 informati 2016 7:44 total on in AM [Moles/vo source lume] in data Serum or Plasma Creatinin 0.55 - mg/dL Normal No December 02 e 1.02 informati 2016 7:44 [Mass/vol on in AM ume] in source Serum or data Plasma Estimated 59- ML/MIN No REFERENCE December 02 informati RANGE: 2017 7:44 glomerula on in >60 AM r source ML/MIN/1. filtratio data 73 SQUARE n rate METERSIf (GF this patient is -A merican, then multiply theresult by 1.210. Globulin 1.3 - 3.2 gm/dL High No December 02 [Mass/vol informati 2016 7:44 ume] in on in AM Serum source data Glucose 74 - 106 mg/dL Normal No December 02 [Mass/vol informati 2016 7:44 ume] in on in AM Serum or source Plasma data Potassium 3.5 - 5.1 mmoL/L Normal No December 02 informati 2016 7:44 [Moles/vo on in AM lume] in source Serum or data Plasma Sodium 136 - 145 mmoL/L Normal No December 02 [Moles/vo informati 2016 7:44 lume] in on in AM Serum or source Plasma data Aspartate 15 - 37 U/L Low No December 02 informati 2016 7:44 aminotran on in AM sferase source [Enzymati data c activity/ volume] in Serum or Plasma Alanine 12 - 78 U/L Normal No December 02 aminotran informati 2016 7:44 sferase on in AM [Enzymati source c data activity/ volume] in Serum or Plasma Protein 6.4 - 8.2 gm/dL Low No December 02 [Mass/vol informati 2016 7:44 ume] in on in AM Serum or source Plasma data Lipid 1996 panel in Serum or Plasma Observa Value Referen Units Interpr Notes Date tion ce etation Range Cholester < 200 mg/dL High No December 02 ol informati 2016 7:44 [Moles/vo on in AM lume] in source Unspecifi data ed specimen Cholester 40 - 60 MG/DL High No December 02 ol in HDL informati 2016 7:44 on in AM [Mass/vol source ume] in data Serum or Plasma Cholester 0 - 130 mg/dL High No December 02 ol in LDL informati 2016 7:44 on in AM [Mass/vol source ume] in data Serum or Plasma by calculati on Triglycer 30 - 200 mg/dL Normal No December 02 joanne ati 2016 7:44 [Moles/vo on in AM lume] in source Serum or data Plasma Cholester 0 - 40 No Normal No December 02 ol in informati informati 2016 7:44 VLDL on in on in AM [Mass/vol source source ume] in data data Serum or Plasma Thyrotropin [Units/volume] in Serum or Plasma Observa Value Referen Units Interpr Notes Date tion ce etation Range Thyrotrop 0.358 - uIU/ml No No December 02 in 3.740 informati informati 2016 7:44 [Units/vo on in on in AM lume] in source source Serum or data data Plasma CBC W Auto Differential panel in Blood Observa Value Referen Units Interpr Notes Date tion ce etation Range Basophils 0 - 0.2 K/MM3 Normal No December 022016 7:44 [#/volume on in AM ] in source Blood by data Automated count Basophils 0.1 - 2.0 % Normal No December 02 informati 2016 7:44 leukocyte on in AM s in source Blood by data Automated count Eosinophi 0.0 - 0.4 K/mm3 Normal No December 02 ls ati 2016 7:44 [#/volume on in AM ] in source Blood by data Automated count Eosinophi 0.1 - % Normal No December 02 ls/100 12.0 informati 2016 7:44 leukocyte on in AM s in source Blood by data Automated count Granulocy 1.8 - 7.8 K/mm3 Normal No December 02 will informati 2016 7:44 [#/volume on in AM ] in source Blood by data Automated count Granulocy 37.0 - % Normal No December 02 will/100 80.0 informati 2016 7:44 leukocyte on in AM s in source Blood by data Automated count Hematocri 37.0 - % Normal No December 02 t [Volume 47.0 informati 2017 7:44 on in AM Fraction] source of Blood data Hemoglobi 12.2 - g/dL Normal No December 02 n 16.2 informati 2016 7:44 [Mass/vol on in AM ume] in source Blood data Lymphocyt 0.7 - 4.5 K/mm3 Normal No December 02 es informati 2016 7:44 [#/volume on in AM ] in source Unspecifi data ed specimen by Automated count Lymphocyt 10 - 50.0 % Normal No December 02 es informati 2016 7:44 [#/volume on in AM ] in source Unspecifi data ed specimen by Automated count Erythrocy 27 - 31.2 pg High No December 02 te mean informati 2016 7:44 corpuscul on in AM ar source hemoglobi data n [Entitic mass] Erythrocy 31.8 - g/dl Normal No December 02 te mean 35.4 informati 2016 7:44 corpuscul on in AM ar source hemoglobi data n concentra tion [Mass/vol ume] by Automated count Erythrocy 82.2 - fl High No December 02 te mean 97.8 informati 2016 7:44 corpuscul on in AM ar volume source [Entitic data volume] by Automated count Monocytes 0.1 - 1.0 K/mm3 Normal No December 02 informati 2017 7:44 [#/volume on in AM ] in source Blood by data Automated count Monocytes 1.7 - 9.3 % Normal No December 02 /100 informati 2017 7:44 leukocyte on in AM s in source Blood by data Automated count Platelet 7.4 - fl Low No December 02 mean 10.4 informati 2017 7:44 volume on in AM [Entitic source volume] data in Blood by Automated count Platelets 142 - 424 K/mm3 Normal No December 02 informati 2017 7:44 [#/volume on in AM ] in source Blood data Erythrocy 4.2 - 5.4 M/mm3 Low No December 02 will informati 2017 7:44 [#/volume on in AM ] in source Amniotic data fluid Erythrocy 11.5 - % Normal No December 02 te 17.5 informati 2017 7:44 distribut on in AM ion width source [Entitic data volume] by Automated count Leukocyte 4.8 - K/MM3 Normal No December 02 s 10.8 informati 2017 7:44 [#/volume on in AM ] in source Blood data
--- OUTSIDE RECORDS SUMMARY | 2017-04-28 03:25 | External Medical Summary Rpt ---
Author Author , BRIANA WARREN Address Unknown Phone [email or web address] Purpose Continuity of Care Document - 12-02-2016 [...]
--- OUTSIDE RECORDS SUMMARY | 2017-04-28 03:25 | External Medical Summary Rpt ---
Author Author BRIANA Meek, BRIANA Vamo Organization [employer] Address Unknown Phone Unavailable Results Heterophile Ab [Presence] in Serum by Latex agglutination Observa Value Referen Units Interpr Notes Date tion ce etation Range COMMENTS TO BRAKE OPERATOR HEAVY DUTY: MONOSPOT TITIER Heterop NEGATIV NEG No No [...] tion method component test.[facility] [address] [place], [place] [id number] Music Engraver: Canelo Chan MD, Phone: [phone] Comprehensive metabolic 2000 panel in Serum [...] Date ti ce etation Range COMMENTS TO BRAKE OPERATOR HEAVY DUTY: ADMINISTER RHOGAM INDICATED Hematocri 37.0 - % [...]
--- OUTSIDE RECORDS SUMMARY | 2017-04-28 03:25 | External Medical Summary Rpt ---
Demographics Preferred Language Scottish Marital Status Unknown Caodaism Affiliation Unknown Race Unknown Ethnic Group Unknown Author Author BRITTANI Address Unknown Phone Immunization No patient found.
--- OUTSIDE RECORDS SUMMARY | 2017-04-28 03:48 | External Medical Summary Rpt ---
Author Author , BRIANA WARREN Address Unknown Phone [email or web address] Purpose Continuity of Care Document - 12-02-2016 [...]
--- OUTSIDE RECORDS SUMMARY | 2017-04-28 03:48 | External Medical Summary Rpt ---
Author Author , BRIANA WARREN Address Unknown Phone [email or web address] Purpose Continuity of Care Document - 12-02-2016 [...]
--- OUTSIDE RECORDS SUMMARY | 2017-04-28 03:49 | External Medical Summary Rpt ---
Demographics Preferred Language Chilean Marital Status Unknown Episcopal Affiliation Unknown Race Unknown Ethnic Group Unknown Author Author BRITTANI Address Unknown Phone Immunization No patient found.
--- OUTSIDE RECORDS SUMMARY | 2017-04-28 03:49 | External Medical Summary Rpt ---
Author Author BRIANA Meek, [employer] Organization [employer] Address Unknown Phone Unavailable Results Heterophile Ab [Presence] in Serum by Latex agglutination Observa Value Referen Units Interpr Notes Date tion ce etation Range COMMENTS TO UNIT LEADER: MONOSPOT TITIER Heterop NEGATIV NEG No No [...] tion method component test.[facility] [address] [place], [place] [id number] Local Operator: Canelo Chan MD, Phone: [phone] Comprehensive metabolic 2000 panel in Serum [...] Date ti ce etation Range COMMENTS TO UNIT LEADER: ADMINISTER RHOGAM INDICATED Hematocri 37.0 - % [...]
--- OUTSIDE RECORDS SUMMARY | 2017-04-28 03:49 | External Medical Summary Rpt ---
Author Author BRIANA Meek, BRIANA Reclamador Organization [employer] Address Unknown Phone Unavailable Results Heterophile Ab [Presence] in Serum by Latex agglutination Observa Value Referen Units Interpr Notes Date tion ce etation Range COMMENTS TO FIELD EDUCATION COORDINATOR: MONOSPOT TITIER Heterop NEGATIV NEG No No [...] tion method component test.[facility] [address] [place], [place] [id number] Instructional Technology Specialist: Canelo Chan MD, Phone: [phone] Comprehensive metabolic 2000 panel in Serum [...] Date ti ce etation Range COMMENTS TO FIELD EDUCATION COORDINATOR: ADMINISTER RHOGAM INDICATED Hematocri 37.0 - % [...]
--- OUTSIDE RECORDS SUMMARY | 2017-04-28 03:49 | External Medical Summary Rpt ---
Demographics Preferred Language Somali Marital Status Unknown Pentecostal Affiliation Unknown Race Unknown Ethnic Group Unknown Author Author BRITTANI Address Unknown Phone Immunization No patient found.
== END 2017-04-03 11:20 | disposition home or self-care (01) ==
LOC: ER 18:26 → 2ND 20:09 → ER 20:09 → 2ND 20:26
PROVIDERS: Emergency Medicine; Internal Medicine Adolescent Medicine
DX: J03.90 Acute tonsillitis, unspecified (principal)
CPT/HCPCS: G0378; J2405

== ENCOUNTER → 2017-06-17 | Outpatient (CLI) | payer OTHER ==
[~2017-06-17] MED LIST changes: +DEXAMETHASONE 4M4 MG PO; +FLONASE 50 MCG16 GM; +SPRINTEC 35 MCG1 TAB PO
[2017-06-17 09:21] LABS: HEMOGLOBIN 14.9 g/dL (12.2-16.2); LYMPH # 3.2 K/mm3 (0.7-4.5); LYMPH % 32.6 % (10-50.0)
[2017-06-17 10:37] LABS: BUN 12 mg/dL (7-18); FREE THYROXIN INDEX 11.7 ug/dl (5.93-13.13)
[2017-06-17 10:42] LABS: GFR (ESTIMATED) 99 ML/MIN (59-)
== END ==
LOC: LAB 08:50
PROVIDERS: Internal Medicine
DX: R53.83 Other fatigue (principal)

== ENCOUNTER → 2017-07-01 | Outpatient (CLI) | payer OTHER ==
--- NOTE | 2017-07-01 19:37 | RADIOLOGY REPORT PS360 ---
CT SINUS (MAX-FACIAL W/O CONT) Ordering Physician: Edson Jose MD Patient Age: 31 years: Female HISTORY: RECURRENT SINUSITIS TECHNIQUE: Helical CT is performed through the facial bones with sagittal and coronal reconstructions on CT versus COMPARISON :04/01/2017 CT neck C-spine. FINDINGS The maxillary sinuses are well-developed and clear with no significant mucosal thickening. The ostiomeatal unit and pathway is are widely patent bilaterally The frontal, ethmoid and sphenoid sinuses are clear. Relatively small frontal sinuses encountered. Ethmoid and sphenoid sinuses well-developed. Orbits unremarkable. Frontal bone skull oral margins floor and medial wall unremarkable. Mild to moderate engorgement nasal turbinates with slightly sigmoid appearing nasal septum. Minor deviation of mid septum to the left inferior septum slightly to the right. IMPRESSION: The paranasal sinuses are clear no sinusitis. The ostiomeatal complex/ maxillary sinus outflow pathways are widely patent and clear. Mild/moderate engorgement nasal turbinates bilateral. Only. Minor sigmoid deviation nasal septum.
== END ==
LOC: RAD 12:19
DX: J32.9 Chronic sinusitis, unspecified (principal)